=== PATIENT | female | born 1960 | race Caucasian/White ===

== ENCOUNTER 2017-01-11 21:15 | Emergency (ER) | payer OTHER ==
[~2017-01-11] VITALS: Ht 91.4 cm; Wt 98.2 kg
[~2017-01-11 21:15] MED LIST: BACLOFEN10 MG PO; CELEXA20 MG PO; LEVOTHYROXIN137 MCG PO; PERCOCET 5/321 COMBO PO; ROCEPHIN 2 GM2 GM IM; ROCEPHIN 2 GM2 GM IV; TERIFLUNOMIDE PO; TRAMADOL HCL50 MG PO; TRAZODONE50 MG PO; VANCOMYCIN HCL1 GM IV
[2017-01-11] MEDS ORDERED: CEPHALEXIN500 MG PO (22:54)
[2017-01-11 23:04] VITALS: BP 123/68
== END 2017-01-11 23:04 | disposition home or self-care (01) | DRG 134 ==
LOC: ED 21:15
PROC: 09QKXZZ Repair Nasal Mucosa and Soft Tissue, External Approach (ICD-10-PCS; principal; 2017-01-11)
DX: S01.25XA Open bite of nose, initial encounter (principal); W54.0XXA Bitten by dog, initial encounter; Y92.009 Unspecified place in unspecified non-institutional (private) residence as the place of occurrence of the external cause

== ENCOUNTER 2017-01-13 09:26 | Emergency (ER) | payer OTHER ==
[~2017-01-13] VITALS: Ht 165.1 cm; Wt 98.0 kg
[~2017-01-13 09:26] MED LIST changes: +CEPHALEXIN500 MG PO
[2017-01-13 10:10] VITALS: BP 136/85
== END 2017-01-13 10:15 | disposition home or self-care (01) | DRG 950 ==
LOC: ED 09:26
DX: S01.25XD Open bite of nose, subsequent encounter (principal); W54.0XXD Bitten by dog, subsequent encounter

== ENCOUNTER 2017-01-17 09:46 | Emergency (ER) | payer OTHER ==
[~2017-01-17] VITALS: Ht 165.1 cm; Wt 95.0 kg
[2017-01-17 10:15] VITALS: BP 126/88
== END 2017-01-17 10:15 | disposition home or self-care (01) | DRG 950 ==
LOC: ED 09:46
DX: S01.25XD Open bite of nose, subsequent encounter (principal); W54.0XXD Bitten by dog, subsequent encounter